=== PATIENT | male | born 1945 | race Two or more races ===

== ENCOUNTER 2022-07-10 11:15 | Inpatient (IN) | payer OTHER ==
[~2022-07-10] VITALS: Ht 167.6 cm; Wt 90.7 kg
[2022-07-10] MEDS ORDERED: COZAAR50 MG PO (13:47)
[2022-07-10] MEDS ORDERED: NOVOLOG100 UNIT/1 (13:48)
[2022-07-10] MEDS ORDERED: LANTUS (13:49)
[2022-07-10] MEDS ORDERED: OMEGA 3 1,0001 EACH PO (13:50)
== END 2022-07-18 18:00 | DRG 470 ==
LOC: SURG 07-16 05:33 → O/R 07-16 05:33 → SURH 07-16 11:15 → SURG 07-16 15:24
PROVIDERS: ADMIT Orthopaedic Surgery; ATTEND Orthopaedic Surgery
PROC: 0QUD07Z Supplement Right Patella with Autologous Tissue Substitute, Open Approach (ICD-10-PCS; 2022-07-16)
PROC: 0SRC0JZ Replacement of Right Knee Joint with Synthetic Substitute, Open Approach (ICD-10-PCS; principal; 2022-07-16 14:00)
DX: M17.11 Unilateral primary osteoarthritis, right knee (principal); D62 Acute posthemorrhagic anemia; E11.9 Type 2 diabetes mellitus without complications; Z79.4 Long term (current) use of insulin; I10 Essential (primary) hypertension

== ENCOUNTER 2022-12-27 17:02 | Inpatient (IN) | payer OTHER ==
[~2022-12-27] VITALS: Ht 167.6 cm; Wt 90.7 kg
[~2022-12-27 17:02] MED LIST: COZAAR50 MG PO; LANTUS; NOVOLOG100 UNIT/1; OMEGA 3 1,0001 EACH PO
[2023-01-01] MEDS ORDERED: ZOCOR40 MG PO (11:23)
[2023-01-08] MEDS ORDERED: FLUOROMETHOLONE5 ML (08:36)
== END 2023-01-09 14:49 | DRG 470 ==
LOC: O/R 01-07 09:21 → SURG 01-07 10:00 → O/R 01-07 15:35 → SURH 01-07 15:37
PROVIDERS: ADMIT Orthopaedic Surgery; ATTEND Orthopaedic Surgery
PROC: 0SRD0J9 Replacement of Left Knee Joint with Synthetic Substitute, Cemented, Open Approach (ICD-10-PCS; principal; 2023-01-07 12:30)
DX: M17.12 Unilateral primary osteoarthritis, left knee (principal); M85.662 Other cyst of bone, left lower leg; I10 Essential (primary) hypertension; Z96.651 Presence of right artificial knee joint